=== PATIENT | male | born 1960 | race Caucasian/White ===

== ENCOUNTER 2019-05-14 15:42 | Emergency (ER) | payer OTHER ==
--- NOTE | 2019-05-14 16:54 | EDM.PDOC ---
ED HPI GENERAL MEDICAL PROBLEM - General Chief Complaint: General Stated Complaint: Fish hook Time Seen by Provider: 05/14/19 15:50 Source of Information: Reports: Patient, Family History Limitations: Reports: No Limitations - History of Present Illness INITIAL COMMENTS - FREE TEXT/NARRATIVE: This is a 58yo M here for a fish hook embedded in the left ring finger. He states while in [place] he tried to have it pulled out 3 times but it did not come out. Onset: Sudden Location: Reports: Upper Extremity, Left ED ROS GENERAL - Review of Systems Review Of Systems: ROS reveals no pertinent complaints other than HPI. ED EXAM, GENERAL - Physical Exam Exam: See Below Exam Limited By: No Limitations General Appearance: Alert, WD/WN, Mild Distress Extremities: Other (left ring finger distal pad embedded fish hook (muskee hook) ) ED GENERAL MEDICAL PROCEDURES - Additional/Other Procedure(s) Other (Free Text) Procedure(s): Left hand and ring finger with hook prepped sterilely and cleansed with chlorhexidine. Numbed with 5mL 1% lidocaine with 27 ga needed. 18 ga needle used to retract hook. No complications. Tetanus addressed - patient states he recently had a shot due to another hook. Course - Vital Signs Last Recorded V/S: Last Vital Signs Temp 36.4 C 05/14/19 15:45 Pulse 81 05/14/19 15:45 Resp 20 05/14/19 15:45 BP 143/84 H 05/14/19 15:45 Pulse Ox 99 05/14/19 15:45 Departure - Departure Time of Disposition: 16:10 Disposition: Home, Self-Care 01 Condition: Good Clinical Impression: Fish hook injury of finger of left hand Qualifiers: Encounter type: initial encounter Qualified Code(s): S69.92XA - Unspecified injury of left wrist, hand and finger(s), initial encounter - Discharge Information Instructions: Wound Care, Adult Referrals: PCP,None [Primary Care Provider] - Forms: ED Department Discharge Additional Instructions: Keep wound clean and dry. Follow up as needed with your primary provider. Call or return to the ER if you have questions or concerns. - Problem List & Annotations (1) Fish hook injury of finger of left hand SNOMED Code(s): 80772066 Code(s): S69.92XA - UNSP INJURY OF LEFT WRIST, HAND AND FINGER(S), INIT ENCNTR Status: Acute Qualifiers: Encounter type: initial encounter Qualified Code(s): S69.92XA - Unspecified injury of left wrist, hand and finger(s), initial encounter - Problem List Review Problem List Initiated/Reviewed/Updated: Yes - Assessment/Plan Plan: Counseled on wound care, monitoring for infection and close f/u as needed. Rtc and see PCP as needed.
== END 2019-05-14 16:07 | disposition home or self-care (01) ==
LOC: LB.ED 15:42
DX: S60.455A Superficial foreign body of left ring finger, initial encounter (principal); W45.8XXA Other foreign body or object entering through skin, initial encounter
CPT/HCPCS: 99282; J2001